=== PATIENT | male | born 1950 | race Caucasian/White ===

== ENCOUNTER 2017-07-06 10:32 | Observation (INO) | payer MEDICARE, BC ==
[2017-07-05 17:38] LABS: BASOPHILS # (AUTO) 0.1 (0.0-0.1); BASOPHILS % 0.8 % (0.0-1.0); EOSINOPHILS # (AUTO) 0.2 (0.0-0.4); EOSINOPHILS % 2.1 % (0.0-6.0); HEMATOCRIT 53.3 % (38.2-49.6); HEMOGLOBIN 17.3 g/dL (14.0-18.0); LYMPHOCYTES # (AUTO) 3.2 (1.0-3.2); LYMPHOCYTES % 31.6 % (18.0-39.1); MEAN CORPUSCULAR HGB CONC 32.5 g/dL (31-35); MEAN CORPUSCULAR VOLUME 89.3 fL (81-99); MONOCYTES # (AUTO) 0.9 (0.2-0.8); MONOCYTES % 9.3 % (4.4-11.3); NEUTROPHILS # (AUTO) 5.7 (2.1-6.9); NEUTROPHILS % 55.8 % (38.7-80.0); PLATELET COUNT 240 x10e3/uL (140-360); RED BLOOD COUNT 5.97 x10e6/uL (4.3-5.7); RED CELL DISTRIBUTION WIDTH 14.6 % (11.7-14.4)
--- NOTE | 2017-07-05 18:13 | Diagnostic Imaging Report ---
PROCEDURE: Frontal and lateral views of the chest. COMPARISON: None. INDICATIONS: PRE OPERATIVE CHEST X-RAY UROLOGY FINDINGS: Lines/tubes: None. Lungs: The lungs are well inflated and clear. There is no evidence of pneumonia or pulmonary edema. Pleura: There is no pleural effusion or pneumothorax. Heart and mediastinum: The heart and the mediastinum are normal. Bones: No acute bony abnormality. IMPRESSION: 1. No acute cardiopulmonary abnormalities. Adolfo Vela M.D. Dictated by: Adolfo Vela M.D. on 07/05/2017 at 18:16 Electronically approved by: Adolfo Vela M.D. on 07/05/2017 at 18:16
[~2017-07-06] VITALS: Ht 193 cm; Wt 100.5 kg
[~2017-07-06 10:32] MED LIST: ASPIR 8181 MG PO; FINASTERIDE5 MG PO; FLOMAX0.4 MG PO; LOSARTAN POTASS25 MG PO
--- OUTSIDE RECORDS SUMMARY | 2017-07-06 10:34 | XMS REPORT ---
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 Allergies, Adverse Reactions, Alerts This patient has no known allergies or adverse reactions. Medications This patient has no known medications. Results Test Description Test Time Test Comments Text Results Atomic Results Result Comments CHEST 2 VIEWS [place] [address] Patient Name: HOUSTON PACE MR #: [id number] : 1950 Age/Sex: 67/M Req #: [id number] [facility] Physician: Ordered by: ANGIE MARVIN MD Report #: [id number] Location: OR Room/Bed: Procedure: [id number] DX/CHEST 2 VIEWS Exam Date: 07/05/17 Exam Time: 1710 REPORT STATUS: Signed PROCEDURE: Frontal and lateral views of the chest. COMPARISON: None. INDICATIONS: PRE OPERATIVE CHEST X- RAY UROLOGY FINDINGS: Lines/tubes: None. Lungs: The lungs are well inflated and clear. There is no evidence of pneumonia or pulmonary edema. Pleura: There is no pleural effusion or pneumothorax. Heart and mediastinum: The heart and the mediastinum are normal. Bones: No acute bony abnormality. IMPRESSION: 1. No acute cardiopulmonary abnormalities. Pam Vela M.D. Dictated by: Pam Vela M.D. on 07/05/2017 at 18:16 Electronically approved by: Pam Vela M.D. on 07/05/2017 at 18:16 Dictated By: PAM VELA MD 15 Transcribed By: BRANDEE on 07/05/171815 COPY TO: ANGIE MARVIN MD
[2017-07-06] MEDS ORDERED: CEFTRIAXONE SOD 1 GM VIAL ONE (10:50)
[2017-07-06] MEDS ORDERED: ACETAMINOPHEN 1000 MG/100 ML 100 ML IV ONE (12:40)
[2017-07-06] MEDS ORDERED: FENTANYL CITRATE/PF 100MCG/2 ML INJ ONE ×2 (14:33→15:05)
[2017-07-06 15:17] VITALS: BP 166/93
[2017-07-06 16:43] VITALS: BP 166/93
[2017-07-06] MEDS ORDERED: SODIUM CHLORIDE 0.9% 1000ML 1,000 ML ONE (17:46)
[2017-07-06] MEDS ORDERED: KETOROLAC TROMETHAMINE 30 MG/ML VIAL ONE (18:33)
[2017-07-06] MEDS ORDERED: SEVOFLURANE INHAL SOLN 250 ML PEN BTL ONE (18:33)
[2017-07-06] MEDS ORDERED: ONDANSETRON HCL INJ 2 MG/ML VIAL ONE (18:33)
[2017-07-06] MEDS ORDERED: DEXAMETHASONE SOD PHOS INJ 4 MG/ML VIAL ONE (18:33)
[2017-07-06] MEDS ORDERED: PROPOFOL IV EMULSION 10 MG/ML 20 ML VIAL ONE (18:33)
[2017-07-06 19:40] VITALS: BP 122/77
[2017-07-06 20:00] VITALS: BP 122/77
[2017-07-07] MEDS: ACETAMINOPHEN/CODEINE 300MG - 30MG TAB PO PRN (00:06)
[2017-07-07 00:25] VITALS: BP 137/69
[2017-07-07 04:36] VITALS: BP 142/81
[2017-07-07 07:17] LABS: HEMATOCRIT 45.2 % (38.2-49.6); HEMOGLOBIN 14.8 g/dL (14.0-18.0)
[2017-07-07 07:42] LABS: ANION GAP 13.1 mmol/L (8-16); BLOOD UREA NITROGEN 20 mg/dL (7-26); BUN/CREATININE RATIO 22 (6-25); CALCIUM 9.1 mg/dL (8.4-10.2); CARBON DIOXIDE 24 mmol/L (22-29); CHLORIDE 107 mmol/L (98-107); CREATININE, SERUM 0.89 mg/dL (0.72-1.25); EST GLOMERULAR FILTRATION RATE > 60 ML/MIN (60-); GLUCOSE 102 mg/dL (74-118); POTASSIUM 4.1 mmol/L (3.5-5.1); SODIUM 140 mmol/L (136-145)
[2017-07-07] MEDS ORDERED: LOSARTAN POTASSIUM 25 MG TAB PO SCH ×2 (09:00→21:00)
[2017-07-07 09:01] VITALS: BP 122/67
[2017-07-07] MEDS: FINASTERIDE 5 MG TAB PO SCH (09:39)
[2017-07-07] MEDS: TAMSULOSIN HCL 0.4 MG CAP PO SCH ×2 (09:39→18:17)
[2017-07-07 12:42] VITALS: BP 112/70
[2017-07-07 16:30] VITALS: BP 124/69
[2017-07-07] MEDS ORDERED: NICOTINE 21 MG/EA PATCH TOP PRN (17:15)
[2017-07-07] MEDS: DEXTROSE 5%/0.9% SOD CHL 1,000 ML IV SCH (17:35)
[2017-07-07 20:00] VITALS: BP 131/73
[2017-07-07] MEDS ORDERED: LORAZEPAM INJ 2 MG/ML VIAL IV PRN (20:15)
[2017-07-07] MEDS ORDERED: ZOLPIDEM TARTRATE 10 MG TAB PO PRN (20:15)
[2017-07-08] VITALS: BP 113/62
[2017-07-08] MEDS: DEXTROSE 5%/0.9% SOD CHL 1,000 ML IV SCH ×2 (01:13→09:47)
[2017-07-08 04:00] VITALS: BP 118/68
[2017-07-08] MEDS: ACETAMINOPHEN/CODEINE 300MG - 30MG TAB PO PRN (06:05)
[2017-07-08 08:08] VITALS: BP 128/73
[2017-07-08] MEDS: FINASTERIDE 5 MG TAB PO SCH (09:47)
[2017-07-08] MEDS: TAMSULOSIN HCL 0.4 MG CAP PO SCH (09:47)
[2017-07-08] MEDS ORDERED: BACTRIM DS TAB1 EACH PO (11:40)
[2017-07-08] MEDS ORDERED: TYLENOL WITH C1 EACH PO (11:41)
[2017-07-08 12:00] VITALS: BP 149/84
[2017-07-08 13:25] VITALS: BP 128/73
--- NOTE | 2017-07-17 17:32 | Operative Report ---
DATE OF PROCEDURE: July 06, 2017 PREOPERATIVE DIAGNOSIS: Urinary retention. POSTOPERATIVE DIAGNOSIS: Urinary retention. OPERATIVE PROCEDURES PERFORMED 1. Cystoscopy. 2. Redo transurethral resection of the prostate. ANESTHESIA: General. ESTIMATED BLOOD LOSS: 100 mL. INDICATIONS: Mr. Storm Alba is a 67-year-old gentleman who previously underwent a transurethral resection of the prostate. He recently presented in urinary retention after a carotid endarterectomy. He has failed conservative management and now presents for definitive management of his problem. PROCEDURE IN DETAIL: The patient was brought to the operating room and placed in the supine position. After administration of general anesthesia, he was placed in the dorsal lithotomy position and prepped and draped in the usual sterile fashion. His prior Champion catheter was removed. Cystourethroscopy was performed using a 21-[employer] [place] cystoscope. The anterior and posterior urethra were noted to be normal. The prostate revealed a resected left lateral lobe with a right lateral lobe which was completely filling the fossa. The bladder was entered with moderate difficulty. Upon entry into the bladder, the ureteral orifices were in normal anatomical position and produced largely clear efflux. There were grade 2 to 3 trabeculations noted throughout with cellules and early diverticula formation. There were no mucosal lesions identified. There was some irritation seen on the dome and the posterior wall presumably from the Champion catheter balloon. The bladder was left full. The cystoscope and sheath were removed. A 26-[employer] [place] resectoscope sheath was placed in a retrograde fashion, and the [employer] resectoscope was used to perform the procedure. The adenoma seen was resected down to the level of the surgical capsule beginning at the 11 o'clock position and proceeding in a counterclockwise fashion down to the 6 o'clock position. There was penetration of the capsule noted, but no gross perforation of the capsule. Hemostasis was obtained using the electrocautery device. The [employer] evacuator was used to remove all chips, and these were ultimately sent to pathology. Visualization of the fossa from the veru at the end of the procedure revealed a wide-open fossa. The resectoscope and sheath were removed. The patient was noted to have a brisk urinary flow with Crede. A 24-[employer] [place], 3-way, coude catheter was then placed in a retrograde fashion and the balloon inflated with 45 mL of sterile water. The urinary efflux was noted to be blood-tinged. The patient was returned to a supine position, and anesthesia was reversed. The patient was transferred to a bed and taken to the postanesthesia care unit in good condition. Of note, the needle and instrument counts were correct at the conclusion of the case. Job#: [id number]
== END 2017-07-08 13:48 | disposition home or self-care (01) ==
LOC: OR 10:32 → IMCU 14:32
PROVIDERS: ADMIT Urology; ATTEND Urology
DX: N40.1 Benign prostatic hyperplasia with lower urinary tract symptoms (principal); N13.8 Other obstructive and reflux uropathy; I10 Essential (primary) hypertension; I71.4 Abdominal aortic aneurysm, without rupture; R33.8 Other retention of urine; N41.0 Acute prostatitis; N41.1 Chronic prostatitis
CPT/HCPCS: 36415 ×2; 52630; 71046; 80048; 85014; 85018; 85025; 88305; 93005; G0378 ×3; J0696; J1100; J1885; J2405; J7030; J7042 ×2